=== PATIENT | male | born 2000 | race Caucasian/White ===

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

== ENCOUNTER 2022-08-17 09:23 | Observation (INO) | payer OTHER ==
[2022-08-17] MEDS ORDERED: METOCLOPRAMIDE 5 MG/ML 2 ML VIAL IVP STA (09:58)
[2022-08-17] MEDS ORDERED: FAMOTIDINE 20 MG/2 ML VIAL IV STA (09:58)
[2022-08-17] MEDS ORDERED: SODIUM CHLORIDE 0.9% 1,000 ML IV STA (09:58)
--- NOTE | 2022-08-17 10:01 | ED ---
General Adult HPI - General Chief complaint: Nausea/Vomiting/Diarrhea Stated complaint: vomiting Time Seen by Provider: 08/17/22 09:48 Source: patient, RN notes reviewed Mode of arrival: ambulatory Limitations: no limitations - History of Present Illness Initial comments: Patient is a pleasant 22-year-old male presenting to the emergency department with nausea vomiting. Onset of symptoms was around 1 AM. Patient also has some abdominal discomfort, more so the left side. Patient feels chilled. Patient believes he did have a fever earlier. Patient states he did have somewhat similar symptoms last week and was diagnosed with gastroenteritis. Patient states symptoms seem to improved and he felt pretty good yesterday. Patient also believes he may be somewhat dehydrated. No diarrhea or constipation. - Related Data Allergies Allergy/AdvReac Type Severity Reaction Status Date / Time aspirin Allergy Rash/Hives/ Verified 08/17/22 09:46 swelling Review of Systems ROS Statement: Those systems with pertinent positive or pertinent negative responses have been documented in the HPI. ROS Other: All systems not noted in ROS Statement are negative. Constitutional: Reports: as per HPI, fever, chills Eyes: Denies: eye pain ENT: Denies: ear pain, congestion Respiratory: Denies: cough, dyspnea Cardiovascular: Denies: chest pain Endocrine: Denies: fatigue Gastrointestinal: Reports: as per HPI, abdominal pain, nausea, vomiting Genitourinary: Denies: dysuria Musculoskeletal: Denies: back pain Skin: Denies: rash Neurological: Denies: weakness Past Medical History Past Medical History: No Reported History History of Any Multi-Drug Resistant Organisms: None Reported Past Surgical History: No Surgical Hx Reported Past Psychological History: ADD/ADHD Smoking Status: Vaper Past Alcohol Use History: None Reported Past Drug Use History: Marijuana General Exam Limitations: no limitations General appearance: alert, in no apparent distress Eye exam: Present: normal appearance ENT exam: Present: normal oropharynx Neck exam: Present: normal inspection Respiratory exam: Present: normal lung sounds bilaterally Cardiovascular Exam: Present: regular rate, normal rhythm GI/Abdominal exam: Present: soft, tenderness (Moderate left sided tenderness to palpation), normal bowel sounds. Absent: distended, guarding, rebound, rigid, pulsatile mass Extremities exam: Present: normal inspection. Absent: pedal edema, calf tendern ess Neurological exam: Present: alert Psychiatric exam: Present: normal affect, normal mood Skin exam: Present: normal color Course Vital Signs 08/17/22 09:44 Temperature 99.2 F Pulse Rate 82 Respiratory 24 Rate Blood Pressure 128/69 O2 Sat by Pulse 99 Oximetry Medical Decision Making - Medical Decision Making Was pt. sent in by a medical professional or institution (, PA, VENEREAL DISEASE INVESTIGATOR, urgent care, hospital, or shelter...) When possible be specific @ -No Did you speak to anyone other than the patient for history (EMS, parent, family, police, friend...)? What history was obtained from this source @ -No Did you review nursing and triage notes (agree or disagree)? Why? @ -I reviewed and agree with nursing and triage notes Were old charts reviewed (outside hosp., previous admission, EMS record, old EKG, old radiological studies, urgent care reports/EKG's, shelter records)? Report findings @ -No old charts were reviewed Differential Diagnosis (chest pain, altered mental status, abdominal pain women, abdominal pain men, vaginal bleeding, weakness, fever, dyspnea, syncope, headache, dizziness, GI bleed, back pain, seizure, CVA, palpatations, mental health)? @ -Differential Abdominal Pain Men: Appendicitis, cholecystitis, diverticulosis, ischemic bowel, pancreatitis, hepatitis, UTI, gastroenteritis, AAA, incarcerated hernia, bowel obstruction, constipation, inflammatory bowel, hepatitis, peptic ulcer disease, splenic infarction, perforated viscus, testicular torsion, this is not meant to be an all-inclusive list EKG interpreted by me (3pts min.). @ -As above X-rays interpreted by me (1pt min.). @ -None done CT interpreted by me (1pt min.). @ -[place] reviewed U/S interpreted by me (1pt. min.). @ -None done What testing was considered but not performed or refused? (CT, X-rays, U/S, labs)? Why? @ -None What meds were considered but not given or refused? Why? @ -None Did you discuss the management of the patient with other professionals (professionals i.e. , RAÚL, VENEREAL DISEASE INVESTIGATOR, lab, RT, psych nurse, high school social science teacher, yarn man, teacher, code enforcement officer, residential case manager)? Give summary @ -Case was discussed with Dr. Segovia who will admit. She does request CRP level and Flagyl Was smoking cessation discussed for >3mins.? @ -No Was critical care preformed (if so, how long)? @ -No Were there social determinants of health that impacted care today? How? (Homelessness, low income, unemployed, alcoholism, drug addiction, transportation, low edu. Level, literacy, decrease access to med. care, senior living, rehab)? @ -No Was there de-escalation of care discussed even if they declined (Discuss DNR or withdrawal of care, Hospice)? DNR status @ -No What co-morbidities impacted this encounter? (DM, HTN, Smoking, COPD, CAD, Cancer, CVA, ARF, Chemo, Hep., AIDS, mental health diagnosis, sleep apnea, morbid obesity)? @ -None Was patient admitted / discharged? Hospital course, mention meds given and route, prescriptions, significant lab abnormalities, going to OR and other pertinent info. @ -Is reevaluated and updated. Patient will be admitted with concern for possible early appendicitis pending surgical reevaluation. Undiagnosed new problem with uncertain prognosis? @ -No Drug Therapy requiring intensive monitoring for toxicity (Heparin, Nitro, I nsulin, Cardizem)? @ -No Were any procedures done? @ -No Diagnosis/symptom? @ -Abdominal pain Acute, or Chronic, or Acute on Chronic? @ -Acute Uncomplicated (without systemic symptoms) or Complicated (systemic symptoms)? @ -default Side effects of treatment? @ -No Exacerbation, Progression, or Severe Exacerbation? @ -No Poses a threat to life or bodily function? How? (Chest pain, USA, OR, pneumonia, PE, COPD, DKA, ARF, appy, cholecystitis, CVA, Diverticulitis, Homicidal, Suicidal, threat to staff... and all critical care pts) @ -No - Lab Data Result diagrams: 08/17/22 10:22 08/17/22 11:44 Lab Results 08/17/22 08/17/22 08/17/22 Range/Units 10:22 10:22 10:22 WBC 15.2 H (3.8-10.6) k/uL RBC 6.01 H (4.30-5.90) m/uL Hgb 16.9 (13.0-17.5) gm/dL Hct 48.4 (39.0-53.0) % MCV 80.4 (80.0-100.0) fL MCH 28.1 (25.0-35.0) pg MCHC 34.9 (31.0-37.0) g/dL RDW 12.8 (11.5-15.5) % Plt Count 260 (150-450) k/uL MPV 7.4 Neutrophils % 90 % Lymphocytes % 4 % Monocytes % 4 % Eosinophils % 1 % Basophils % 0 % Neutrophils # 13.7 H (1.3-7.7) k/uL Lymphocytes # 0.6 L (1.0-4.8) k/uL Monocytes # 0.6 (0-1.0) k/uL Eosinophils # 0.1 (0-0.7) k/uL Basophils # 0.0 (0-0.2) k/uL PT 10.8 (9.0-12.0) sec INR 1.0 (<1.2) APTT 23.9 (22.0-30.0) sec Sodium (137-145) mmol/L Potassium (3.5-5.1) mmol/L Chloride (98-107) mmol/L Carbon Dioxide (22-30) mmol/L Anion Gap mmol/L BUN (9-20) mg/dL Creatinine (0.66-1.25) mg/dL Est GFR (CKD-EPI)AfAm (>60 ml/min/1.73 sqM) Est GFR (CKD-EPI)NonAf (>60 ml/min/1.73 sqM) Glucose (74-99) mg/dL Calcium (8.4-10.2) mg/dL Total Bilirubin (0.2-1.3) mg/dL AST (17-59) U/L ALT (4-49) U/L Alkaline Phosphatase (38-126) U/L Total Protein (6.3-8.2) g/dL Albumin (3.5-5.0) g/dL Amylase (30-110) U/L Lipase (23-300) U/L Urine Color Yellow Urine Appearance Clear (Clear) Urine pH 8.5 H (5.0-8.0) Ur Specific [place] 1.032 (1.001-1.035) Urine Protein 1+ H (Negative) Urine Glucose (UA) Negative (Negative) Urine Ketones 4+ H (Negative) Urine Blood Negative (Negative) Urine Nitrite Negative (Negative) Urine Bilirubin Negative (Negative) Urine Urobilinogen <2.0 (<2.0) mg/dL Ur Leukocyte Esterase Negative (Negative) Urine RBC 1 (0-5) /hpf Urine WBC 1 (0-5) /hpf Urine Mucus Few H (None) /hpf 08/17/22 Range/Units 11:44 WBC (3.8-10.6) k/uL RBC (4.30-5.90) m/uL Hgb (13.0-17.5) gm/dL Hct (39.0-53.0) % MCV (80.0-100.0) fL MCH (25.0-35.0) pg MCHC (31.0-37.0) g/dL RDW (11.5-15.5) % Plt Count (150-450) k/uL MPV Neutrophils % % Lymphocytes % % Monocytes % % Eosinophils % % Basophils % % Neutrophils # (1.3-7.7) k/uL Lymphocytes # (1.0-4.8) k/uL Monocytes # (0-1.0) k/uL Eosinophils # (0-0.7) k/uL Basophils # (0-0.2) k/uL PT (9.0-12.0) sec INR (<1.2) APTT (22.0-30.0) sec Sodium 136 L (137-145) mmol/L Potassium 3.9 (3.5-5.1) mmol/L Chloride 101 (98-107) mmol/L Carbon Dioxide 24 (22-30) mmol/L Anion Gap 11 mmol/L BUN 29 H (9-20) mg/dL Creatinine 0.82 (0.66-1.25) mg/dL Est GFR (CKD-EPI)AfAm >90 (>60 ml/min/1.73 sqM) Est GFR (CKD-EPI)NonAf >90 (>60 ml/min/1.73 sqM) Glucose 123 H (74-99) mg/dL Calcium 8.7 (8.4-10.2) mg/dL Total Bilirubin 1.0 (0.2-1.3) mg/dL AST 32 (17-59) U/L ALT 28 (4-49) U/L Alkaline Phosphatase 60 (38-126) U/L Total Protein 6.9 (6.3-8.2) g/dL Albumin 4.4 (3.5-5.0) g/dL Amylase 40 (30-110) U/L Lipase 39 (23-300) U/L Urine Color Urine Appearance (Clear) Urine pH (5.0-8.0) Ur Specific [place] (1.001-1.035) Urine Protein (Negative) Urine Glucose (UA) (Negative) Urine Ketones (Negative) Urine Blood (Negative) Urine Nitrite (Negative) Urine Bilirubin (Negative) Urine Urobilinogen (<2.0) mg/dL Ur Leukocyte Esterase (Negative) Urine RBC (0-5) /hpf Urine WBC (0-5) /hpf Urine Mucus (None) /hpf Disposition Clinical Impression: Abdominal pain Disposition: ADMITTED IP TO THIS HOSP Is patient prescribed a controlled substance at d/c from ED?: No Referrals: None,Stated [Primary Care Provider] - 1-2 days Time of Disposition: 14:04
[2022-08-17] MEDS ORDERED: ACETAMINOPHEN IV (For NPO) 1,000 MG in EMPTY BAG 1 BAG IVPB STA (10:02)
[2022-08-17 11:04] LABS: Basophils % (A) 0 %; Eosinophils # (A) 0.1 k/uL (0-0.7); Eosinophils % (A) 1 %; HCT 48.4 % (39.0-53.0); HGB 16.9 gm/dL (13.0-17.5); Lymphocytes # (A) 0.6 k/uL (1.0-4.8); Lymphocytes % (A) 4 %; MCH 28.1 pg (25.0-35.0); MCHC 34.9 g/dL (31.0-37.0); MCV 80.4 fL (80.0-100.0); Mean Platelet Volume 7.4; Monocytes # (A) 0.6 k/uL (0-1.0); Monocytes % (A) 4 %; Neutrophils # (A) 13.7 k/uL (1.3-7.7); Neutrophils % (A) 90 %; Platelet Count 260 k/uL (150-450); RBC 6.01 m/uL (4.30-5.90); RDW 12.8 % (11.5-15.5); WBC 15.2 k/uL (3.8-10.6)
[2022-08-17 11:05] LABS: Appearance,Urine Clear (Clear); Bilirubin,Urine Negative (Negative); Blood,Urine Negative (Negative); Color,Urine Yellow; Glucose,Urine (UA) Negative (Negative); Ketones,Urine 4+ (Negative); Leukocyte Esterase,Urine Negative (Negative); Mucus,Urine Few /hpf; Nitrite,Urine Negative (Negative); PH, Urine 8.5 (5.0-8.0); Protein,Urine 1+ (Negative); RBC,Urine 1 /hpf (0-5); Specific Gravity,Urine 1.032 (1.001-1.035); Urobilinogen,Urine <2.0 mg/dL (<2.0); WBC,Urine 1 /hpf (0-5)
[2022-08-17 11:24] LABS: Prothrombin Time 10.8 sec (9.0-12.0)
[2022-08-17 11:25] LABS: Partial Thromboplastin Time 23.9 sec (22.0-30.0)
--- NOTE | 2022-08-17 11:27 | CT ---
EXAMINATION TYPE: CT abdomen pelvis w con DATE OF EXAM: 08/17/2022 COMPARISON: None. HISTORY: abdominal pain, vomiting, weakness CT DLP: 641.8 mGycm, Automated Exposure Control for Dose Reduction was Utilized. CONTRAST: CT scan of the abdomen and pelvis is performed without overall but with IV Contrast, patient injected with 100 mL of Isovue 300. FINDINGS: LUNG BASES: No significant abnormality is appreciated. LIVER/GB: No significant abnormality is appreciated. PANCREAS: No significant abnormality is seen. SPLEEN: No significant abnormality is seen. ADRENALS: No significant abnormality is seen. KIDNEYS: Symmetric cortical medullary uptake and excretion without hydronephrosis seen bilaterally. BOWEL: Appendix is perhaps minimally dilated measuring up to 7 mm from the cecal with prep is minimal adjacent fat stranding for reference axial image 42 and coronal image 44. No free air. No well-forme d fluid collection or abscess. Suboptimal evaluation of bowel without enteric contrast. No suspicious small or large bowel dilatatio n. Focal mild wall thickening in the proximal sigmoid colon axial image 74. PROSTATE/SEMINAL VESICLES: No gross abnormality seen. LYMPH NODES: No greater than 1cm abdominal or pelvic lymph nodes are appreciated. Few prominent but subcentimeter lymph nodes throughout the mesentery. Slight swirling of vessels noted in the mid abdom en. OSSEOUS STRUCTURES: No significant abnormality is seen. OTHER: No significant additional abnormality is seen. IMPRESSION: Cannot exclude early or acute appendicitis with mild to minimal surrounding inflammatory changes as detailed above. Correlate clinically. Possible mild uncomplicated focal colitis versus pro duct of poor distention. Correlate clinically.
[2022-08-17 12:05] LABS: ALT 28 U/L (4-49); AST 32 U/L (17-59); African American GFR (CKD) >90 (>60 ml/min/1.73 sqM); Albumin 4.4 g/dL (3.5-5.0); Alkaline Phosphatase 60 U/L (38-126); Amylase 40 U/L (30-110); Anion Gap 11 mmol/L; Blood Urea Nitrogen 29 mg/dL (9-20); Calcium 8.7 mg/dL (8.4-10.2); Carbon Dioxide 24 mmol/L (22-30); Chloride 101 mmol/L (98-107); Glucose 123 mg/dL (74-99); Lipase 39 U/L (23-300); Non-African American GFR(CKD) >90 (>60 ml/min/1.73 sqM); Potassium 3.9 mmol/L (3.5-5.1); Sodium 136 mmol/L (137-145); Total Protein 6.9 g/dL (6.3-8.2)
[2022-08-17] MEDS ORDERED: HYDROmorphone 1 MG/ML 1 ML SYRINGE IVP PRN (14:04)
[2022-08-17] MEDS ORDERED: NALOXONE 0.4 MG/ML 1 ML VIAL IV PRN (14:04)
[2022-08-17] MEDS ORDERED: HYDROmorphone 0.5 MG/0.5 ML SYRINGE IVP PRN (14:04)
[2022-08-17] MEDS: SODIUM CHLORIDE 0.9% 1,000 ML IV SCH (14:42)
[2022-08-17] MEDS: metroNIDAZOLE-NS PMX 500 MG in SALINE 1 100ML.BAG IVPB SCH (15:56)
--- NOTE | 2022-08-17 16:08 | P.GSHP ---
History of Present Illness H&P Date: 08/17/22 CHIEF COMPLAINT: Abdominal pain with nausea and vomiting. HISTORY OF PRESENT ILLNESS: This is a 22-year-old male presents to the ER with complaint of nausea and vomiting started around 1:00 this morning. Patient complains of abdominal pain on the left side of the abdomen. Patient reports he had similar symptoms last week and was diagnosed with gastroenteritis. Patient also had vomited blood. Hemoglobin stable at 16.9. Patient is started on IV Protonix and Flagyl. Computed tomography scan cannot exclude early acute appendicitis with mild to minimal surrounding inflammatory changes as detailed above. Possible mild uncomplicated Focal colitis versus product a poor distention. Patient denies any history of inflammatory bowel disease. He does have a mother who had irritable bowel syndrome and constipation. Father with known history of diverticulitis. Patient denies any prior colonoscopy. He denies any right lower quadrant pain. PAST MEDICAL HISTORY: See below PAST SURGICAL HISTORY: See below MEDICATIONS: See below ALLERGIES: See below SOCIAL HISTORY: No illicit drug use. REVIEW OF SYSTEMS: CONSTITUTIONAL: Denies fever or chills. HEENT: Denies blurred vision, vision changes, or eye pain. Denies hemoptysis CARDIOVASCULAR: Denies chest pain or pressure. RESPIRATORY: No shortness of breath. GASTROINTESTINAL: See HPI for pertinent findings HEMATOLOGIC: Denies bleeding disorders. GENITOURINARY: Denies any blood in urine or increased urinary frequency. SKIN: Denies pruitis. Denies rash. PHYSICAL EXAM: VITAL SIGNS: Reviewed GENERAL: Well-developed in no acute distress. HEENT: No sclera icterus. Extraocular movements grossly intact. Moist buccal mucosa. Head is atraumatic, normocephalic. No nasal drainage. ABDOMEN: Soft. Nondistended. Tenderness along the left side of the abdomen. No tenderness in the right lower quadrant NEUROLOGIC: Alert and oriented. Cranial nerves II through XII grossly intact. LABORATORY DATA: WBC is 15.2 Hgb 16.9 platelets 260 Sodium is 136 potassium is 3.9 creatinine 0.82 LFTs and lipase normal Urinalysis negative for infection IMAGING: Computed tomography scan as stated above ASSESSMENT: 1. Left-sided abdominal pain. No evidence of acute appendicitis. Possible colitis. There is some wall thickening noted along the proximal sigmoid colon noted on CAT scan. Patient could have underlying inflammatory bowel disease 2. Hematemesis PLAN: -Patient scheduled for EGD tomorrow, 08/18/[address] Davey -Mary added for possible colitis -Recommend bowel rest, keep patient nothing by mouth except for ice chips and popsicles -Nothing by mouth after midnight -Continue IV Protonix -Continue IV fluids -Continue supportive care Physician Councilor note has been reviewed by physician. Signing provider agrees with the documented findings, assessment, and plan of care. Past Medical History Past Medical History: No Reported History History of Any Multi-Drug Resistant Organisms: None Reported Past Surgical History: No Surgical Hx Reported Past Psychological History: ADD/ADHD Smoking Status: Vaper Past Alcohol Use History: None Reported Past Drug Use History: Marijuana Medications and Allergies Home Medications Medication Instructions Recorded Confirmed Type No Known Home Medications 08/17/22 08/17/22 History Allergies Allergy/AdvReac Type Severity Reaction Status Date / Time aspirin Allergy Anaphylaxis Verified 08/17/22 14:36 Surgical - Exam Vital Signs Temp Pulse Resp BP Pulse Ox 99.2 F 82 24 128/69 99 08/17/22 09:44 08/17/22 09:44 08/17/22 09:44 08/17/22 09:44 08/17/22 09:44 Results - Labs 08/17/22 10:22 08/17/22 11:44 Abnormal Lab Results - Last 24 Hours (Table) 08/17/22 08/17/22 08/17/22 Range/Units 10:22 10:22 11:44 WBC 15.2 H (3.8-10.6) k/uL RBC 6.01 H (4.30-5.90) m/uL Neutrophils # 13.7 H (1.3-7.7) k/uL Lymphocytes # 0.6 L (1.0-4.8) k/uL Sodium 136 L (137-145) mmol/L BUN 29 H (9-20) mg/dL Glucose 123 H (74-99) mg/dL Urine pH 8.5 H (5.0-8.0) Urine Protein 1+ H (Negative) Urine Ketones 4+ H (Negative) Urine Mucus Few H (None) /hpf Diabetes panel 08/17/22 Range/Units 11:44 Sodium 136 L (137-145) mmol/L Potassium 3.9 (3.5-5.1) mmol/L Chloride 101 (98-107) mmol/L Carbon Dioxide 24 (22-30) mmol/L BUN 29 H (9-20) mg/dL Creatinine 0.82 (0.66-1.25) mg/dL Glucose 123 H (74-99) mg/dL Calcium 8.7 (8.4-10.2) mg/dL AST 32 (17-59) U/L ALT 28 (4-49) U/L Alkaline Phosphatase 60 (38-126) U/L Total Protein 6.9 (6.3-8.2) g/dL Albumin 4.4 (3.5-5.0) g/dL Calcium panel 08/17/22 Range/Units 11:44 Calcium 8.7 (8.4-10.2) mg/dL Albumin 4.4 (3.5-5.0) g/dL Pituitary panel 08/17/22 Range/Units 11:44 Sodium 136 L (137-145) mmol/L Potassium 3.9 (3.5-5.1) mmol/L Chloride 101 (98-107) mmol/L Carbon Dioxide 24 (22-30) mmol/L BUN 29 H (9-20) mg/dL Creatinine 0.82 (0.66-1.25) mg/dL Glucose 123 H (74-99) mg/dL Calcium 8.7 (8.4-10.2) mg/dL Adrenal panel 08/17/22 Range/Units 11:44 Sodium 136 L (137-145) mmol/L Potassium 3.9 (3.5-5.1) mmol/L Chloride 101 (98-107) mmol/L Carbon Dioxide 24 (22-30) mmol/L BUN 29 H (9-20) mg/dL Creatinine 0.82 (0.66-1.25) mg/dL Glucose 123 H (74-99) mg/dL Calcium 8.7 (8.4-10.2) mg/dL Total Bilirubin 1.0 (0.2-1.3) mg/dL AST 32 (17-59) U/L ALT 28 (4-49) U/L Alkaline Phosphatase 60 (38-126) U/L Total Protein 6.9 (6.3-8.2) g/dL Albumin 4.4 (3.5-5.0) g/dL
[2022-08-17] MEDS: ONDANSETRON 4 MG/2 ML VIAL IVP PRN (19:58)
[2022-08-17] MEDS: ACETAMINOPHEN TAB 325 MG TAB PO PRN (19:59)
[2022-08-18] MEDS: metroNIDAZOLE-NS PMX 500 MG in SALINE 1 100ML.BAG IVPB SCH ×4 (00:31→23:31)
[2022-08-18] MEDS: SODIUM CHLORIDE 0.9% 1,000 ML IV SCH ×2 (00:33→13:26)
[2022-08-18 07:21] LABS: Basophils % (A) 1 %; Eosinophils # (A) 0.3 k/uL (0-0.7); Eosinophils % (A) 4 %; HCT 44.9 % (39.0-53.0); HGB 15.2 gm/dL (13.0-17.5); Lymphocytes # (A) 1.3 k/uL (1.0-4.8); Lymphocytes % (A) 20 %; MCH 28.5 pg (25.0-35.0); MCHC 33.8 g/dL (31.0-37.0); MCV 84.4 fL (80.0-100.0); Mean Platelet Volume 6.6; Monocytes # (A) 0.6 k/uL (0-1.0); Monocytes % (A) 9 %; Neutrophils # (A) 4.2 k/uL (1.3-7.7); Neutrophils % (A) 63 %; Platelet Count 215 k/uL (150-450); RBC 5.31 m/uL (4.30-5.90); RDW 12.5 % (11.5-15.5); WBC 6.7 k/uL (3.8-10.6)
[2022-08-18 08:14] LABS: ALT 27 U/L (4-49); AST 32 U/L (17-59); African American GFR (CKD) >90 (>60 ml/min/1.73 sqM); Albumin 3.9 g/dL (3.5-5.0); Albumin/Globulin Ratio 1.6; Alkaline Phosphatase 51 U/L (38-126); Anion Gap 11 mmol/L; Blood Urea Nitrogen 18 mg/dL (9-20); Calcium 8.6 mg/dL (8.4-10.2); Carbon Dioxide 23 mmol/L (22-30); Chloride 104 mmol/L (98-107); Globulin 2.4 g/dL; Glucose 87 mg/dL (74-99); Non-African American GFR(CKD) >90 (>60 ml/min/1.73 sqM); Sodium 138 mmol/L (137-145); Total Bilirubin 0.6 mg/dL (0.2-1.3); Total Protein 6.3 g/dL (6.3-8.2)
[2022-08-18] MEDS: PANTOPRAZOLE 40 MG/10 ML VIAL IV SCH (08:28)
[2022-08-18] MEDS ORDERED: fentaNYL (PF) 50 MCG/ML 2 ML AMP ONE (08:53)
[2022-08-18] MEDS ORDERED: PROPOFOL 10 MG/ML 20 ML VIAL IV ONE (08:53)
[2022-08-18] MEDS ORDERED: MIDAZOLAM 2 MG/2 ML VIAL ONE (08:53)
[2022-08-18] MEDS ORDERED: IV FLUID CONTINUATION 500 ML IV ONE (08:54)
--- NOTE | 2022-08-18 09:29 | P.PCN ---
Date of Procedure: 08/18/22 Description of Procedure: PREOPERATIVE DIAGNOSIS: Gastritis Gastroesophageal reflux disease. Epigastric abdominal pain POSTOPERATIVE DIAGNOSIS: Gastritis. Epigastric abdominal pain OPERATION: Esophagogastroduodenoscopy with biopsies along antrum and duodenum SURGEON: Chikis Davey MD ANESTHESIA: MAC. INDICATIONS: The patient is a 22-year-old male who presents with epigastric abdominal pain with reflux and gastritis. Benefits and risks of the procedure were described. Informed consent was obtained. DESCRIPTION: The patient was brought into the endoscopy suite and laid in the left lateral decubitus position. An Olympus gastroscope was passed along the posterior oropharynx down to the distal esophagus where the squamocolumnar junction was encountered at 40 cm from the incisors. The stomach was entered and no bile reflux was found. Additional findings are listed below. Biopsies with cold forceps were obtained of the antrum. The first through third portion of the duodenum was examined. Retroflexion of the scope confirmed Hill grade 2 lower esophageal valve. The squamocolumnar junction demonstrated LA grade A erosive esophagitis. The stomach was desufflated. The patient tolerated the procedure well. FINDINGS: Squamocolumnar junction 40 cm from the incisors. Diaphragmatic hiatus at 40 cm. Hill grade 4 lower esophageal valve. LA grade A erosive esophagitis. Biopsies obtained for duodenitis. Chronic gastritis with biopsies obtained RECOMMENDATIONS: Upper endoscopy as needed.
--- NOTE | 2022-08-18 09:30 | P.PN ---
Progress Note - Text Progress Note Date: 08/18/22 Patient reports change in bowel habits including worsening abdominal pain, left sided with intermittent blood in stools. Features consistent with colitis. Will proceed with colonoscopy. Clear liquid diet at this time.
--- NOTE | 2022-08-18 12:58 | US ---
EXAMINATION TYPE: US gallbladder DATE OF EXAM: 08/18/2022 COMPARISON: NONE CLINICAL INDICATION: Male, 22 years old with history of upper abdominal pain, gallbladder disease; ab d pain on the left TECHNIQUE: Multiple sonographic images of the right upper quadrant are obtained. FINDINGS: EXAM MEASUREMENTS: Liver Length: 14.0 cm Gallbladder Wall: 0.2 cm CBD: 0.5 cm Right Kidney: 9.9 x 4.3 x 4.8 cm Pancreas: wnl Liver: wnl Gallbladder: wnl Evidence for sonographic Patel's sign: no CBD: wnl Right Kidney: wnl IMPRESSION: No gallstones or biliary ductal dilatation. No specific sonographic abnormality seen at the right upp er quadrant.
[2022-08-18] MEDS: ONDANSETRON 4 MG/2 ML VIAL IVP PRN ×2 (13:23→20:45)
[2022-08-18] MEDS ORDERED: PEG 3350 (420 GM/BTL) + LYTES 4,000 ML BOTTLE PO ONE (14:00)
--- NOTE | 2022-08-18 16:35 | NM ---
EXAMINATION TYPE: NM hepatobiliary w CCK DATE OF EXAM: 08/18/2022 4:22 PM COMPARISON ultrasound imaging 08/18/2021, CT 08/17/2022 CLINICAL INDICATION:Male, 22 years old with history of upper abdominal pain, gallbladder disease; TECHNIQUE: The patient was given 4.4 mCi of Technetium 99m-Mebrofenin as a radiotracer and multiple scintigraphic images were obtained of the abdomen. Gallbladder function was also assessed after the a dministration of 1.3 mcg grams Sincalide (cholecystokinin) and additional scintigraphic images were o btained of the abdomen. A region of interest was drawn over the gallbladder and a timing activity cur ve was generated. The gallbladder ejection fraction was calculated. FINDINGS: Normal uptake of radiotracer was identified within the liver within 5 minutes with excretion into the hepatic and common biliary ducts within 6 minutes. There was normal progressive washout of the liver over the course of the study. Radiotracer uptake within the gallbladder at 90 minutes delayed. Maximum calculated gallbladder ejection fraction no ejection fraction was calculated secondary to poo r uptake within the gallbladder. Ejection fraction was nondiagnostic secondary to delayed filling. IMPRESSION: 1. Gallbladder filling on delayed imaging which can be seen in setting of chronic cholecystitis, giv en patient's gallbladder ultrasound findings without sonographic Patel's sign could be a false posit godfrey. Clinical correlation advised. It should be noted that the prior CT demonstrated the appendix up in the right upper quadrant with inflammation changes suggesting acute appendicitis. 2. The ejection fraction calculation is felt to be nondiagnostic secondary to delayed filling of the gallbladder.
[2022-08-18] MEDS: ACETAMINOPHEN TAB 325 MG TAB PO PRN (19:56)
[2022-08-19] MEDS: SODIUM CHLORIDE 0.9% 1,000 ML IV SCH (03:03)
[2022-08-19] MEDS: PANTOPRAZOLE 40 MG/10 ML VIAL IV SCH (08:01)
[2022-08-19] MEDS: metroNIDAZOLE-NS PMX 500 MG in SALINE 1 100ML.BAG IVPB SCH (08:02)
[2022-08-19] MEDS ORDERED: PROPOFOL 10 MG/ML 20 ML VIAL IV ONE (14:23)
[2022-08-19] MEDS ORDERED: LIDOCAINE 2% INJ 20 MG/ML (2 ML VIAL) ONE (14:23)
[2022-08-19] MEDS ORDERED: IV FLUID CONTINUATION 200 ML IV ONE (14:27)
--- NOTE | 2022-08-19 15:18 | P.PN ---
Progress Note - Text Progress Note Date: 08/19/22 Attempted to reach mother via telephone, left voicemail instead.
--- NOTE | 2022-08-19 15:20 | P.PCN ---
Date of Procedure: 08/19/22 Description of Procedure: PREOPERATIVE DIAGNOSIS: Abnormal computed tomography scan for colitis Abdominal pain which change in bowel habits Leukocytosis POSTOPERATIVE DIAGNOSIS: Microscopic colitis OPERATION: Colonoscopy to the cecum, ileocecal valve and appendiceal orifice. Colonoscopy with cold forceps biopsy SURGEON: Chikis Davey MD. ANESTHESIA: MAC. INDICATIONS: The patient is a 22-year-old male who presents with left-sided abdominal pain, abnormal computed tomography scan for colitis, change in bowel habits, anorexia. Benefits and risks were described and informed consent was obtained. DESCRIPTION OF PROCEDURE: The patient had undergone Sutab prep. The patient had been brought into the operating room and laid in the left lateral decubitus position. After adequate intravenous sedation, the rectum was examined with 2% lidocaine jelly. No external hemorrhoids were encountered. The rectal tone was within normal limits. No lesions were palpated in the rectal vault. An Olympus colonoscope was advanced until the cecum, ileocecal valve and appendiceal orifice were clearly viewed. The prep was fair to good.. No scattered diverticulosis was encountered. No colonic polyps were found. Random biopsies with cold forceps was obtained for microscopic colitis. Retroflexion of the scope demonstrated grade 1 internal hemorrhoids without active bleeding or inflammation. The colon was desufflated. The patient had tolerated the procedure well. Withdrawal time was over 6 minutes. FINDINGS: Aronchick preparation quality scale 2+ (1-5) Internal hemorrhoids, grade 1 No external prolapsed hemorrhoids. No arteriovenous malformations. No adenomatous polyps. No diverticulosis Random biopsies obtained for colitis, microscopic RECOMMENDATIONS: Lower endoscopy as needed. Plan - Discharge Summary New Discharge Prescriptions: No Action No Known Home Medications Discharge Medication List No Known Home Medications 08/17/22 [History] Follow up Appointment(s)/Referral(s): None,Stated [Primary Care Provider] - 1-2 days Patient Instructions/Handouts: Low Fiber Diet (DC)
[2022-08-19 16:27] VITALS: RESP 18; TEMP 97.6
--- NOTE | 2022-08-19 16:27 | P.DS ---
Providers Date of admission: 08/17/22 14:05 Expected date of discharge: 08/19/22 Attending physician: Chikis Davey Consults: 08/19/22 14:58 Consult Physician Urgent Consulting Provider: Federico Tubbs Consult Reason/Comments: Severe bilateral hip pain Do you want consulting provider notified?: Yes Primary care physician: Stated None Hospital Course: DISCHARGE DIAGNOSES: 1. Abnormal CT for colitis 2. Left-sided abdominal pain 3. Leukocytosis 4. Abnormal computed tomography scan for possible appendicitis 5. Abnormal HIDA scan for possible cholecystitis 6. Bilateral hip pain 7. Intractable nausea and vomiting 8. Family history diverticulosis 9. Family history multiple sclerosis 10. Family history for colitis 11. Gastroesophageal reflux disease 12. Gastritis 13. Duodenitis COURSE: The patient is a 22-year-old male presented to the hospital with intractable nausea and vomiting, abdominal pain, poor oral intake. CT of the abdomen and pelvis demonstrated questionable appendicitis however patient complained of left-sided abdominal pain and change in bowel habits. Additional history obtained by his parents include multiple sclerosis, colitis, div erticulosis within his family. Also gallbladder disease confirmed with his mother. Multiple diagnostic studies including gallbladder studies performed demonstrating questionable chronic cholecystitis. Clinically, patient denied any right upper quadrant abdominal pain. Patient had gastroesophageal reflux disease and epigastric abdominal pain prompting upper endoscopy. Features of gastritis confirmed. Colonoscopy performed due to colitis per CT and patient's symptoms. Multiple biopsies were obtained. Features were consistent duodenitis. Patient complained of bilateral hip pain where orthopedic consultation was obtained. Clinically, patient tolerated diet. Outpatient follow-up with primary care provider including consultants. All questions addressed with patient for which he was stable for discharge. Patient Condition at Discharge: Stable Plan - Discharge Summary New Discharge Prescriptions: New Omeprazole [PriLOSEC] 40 mg PO DAILY #14 cap Acetaminophen Tab [Tylenol Tab] 1,000 mg PO Q6HR PRN #30 tablet PRN Reason: Pain Discharge Medication List Acetaminophen Tab [Tylenol Tab] 1,000 mg PO Q6HR PRN #30 tablet 08/19/22 [Rx] Omeprazole [PriLOSEC] 40 mg PO DAILY #14 cap 08/19/22 [Rx] Follow up Appointment(s)/Referral(s): None,Stated [Primary Care Provider] - 1-2 days Chikis Davey MD [STAFF PHYSICIAN] - As Needed Federico Tubbs DO [Doctor of Osteopathic Medicine] - As Needed Patient Instructions/Handouts: Low Fiber Diet (DC), Microscopic Colitis (DC) Activity/Diet/Wound Care/Special Instructions: Take medications as prescribed. Discharge Disposition: HOME SELF-CARE
--- NOTE | 2022-08-19 16:28 | P.PN ---
Progress Note - Text Progress Note Date: 08/19/22 To Whom It May Concern Deep Samson was hospitalized August 17 to August 19, 2022. He will need additional time for recovery prior to the return to work. Regards, Chikis Davey MD
[2022-08-19 17:21] VITALS: PULSE 64
[2022-08-19 17:24] VITALS: BP 120/54
== END 2022-08-19 17:33 | disposition home or self-care (01) ==
LOC: EC 09:23 → 6NMEDSUR 14:05
PROVIDERS: ADMIT Surgery Plastic and Reconstructive Surgery; ATTEND Surgery Plastic and Reconstructive Surgery
DX: K29.80 Duodenitis without bleeding (principal); K29.50 Unspecified chronic gastritis without bleeding; K21.00 Gastro-esophageal reflux disease with esophagitis, without bleeding; K52.839 Microscopic colitis, unspecified; K64.0 First degree hemorrhoids; F90.9 Attention-deficit hyperactivity disorder, unspecified type; M25.551 Pain in right hip; M25.552 Pain in left hip; Z88.6 Allergy status to analgesic agent; Z82.0 Family history of epilepsy and other diseases of the nervous system; Z83.79 Family history of other diseases of the digestive system
CPT/HCPCS: 96361 ×3; 96366 ×2; 96367; 96375 ×3; 96365; 99285; 36415; 88305 ×2; 80053 ×2; 82150; 83605; 83690; 85025 ×2; 85610; 85730; 86140; 81001; 87040; 76705; 74177; 78227; 45380; 43239; G0378 ×3; A9537; J2250; J2765; J2405 ×2; J2805; J3010; J0131; J2704 ×2; C9113 ×2; J1170; Q9967; J2001